=== PATIENT | female | born 1940 | race Caucasian/White ===

== ENCOUNTER 2018-12-31 05:00 | Inpatient (IN) ==
[2018-12-31] MEDS ORDERED: ONDANSETRON HCL/PF 2 MG/ML VIAL IV ONE (05:24)
[2018-12-31] MEDS ORDERED: fentaNYL CITRATE/PF 50 MCG/ML AMPUL IV ONE (05:24)
--- NOTE | 2018-12-31 05:34 | ERNOTE ---
Trauma/Assault HPI - Narrative Date of Service: 12/31/18 - General Stated Complaint: FALL.LT HIP PAIN Time Seen by Provider: 12/31/18 05:20 Source: patient Exam Limitations: no limitations - Immun/Allergies/Home Medications Immunizations: IMMUNIZATION HX Immunizations Up to Date Yes History of Influenza Vaccine No Hx Pneumococcal Vaccination Yes Allergies/Adverse Reactions: Allergies ciprofloxacin Allergy (Verified 12/31/18 05:12) codeine Allergy (Verified 12/31/18 05:12) tape Allergy (Uncoded 12/31/18 05:12) Home Medications: HOME MEDICATIONS Amlodipine Besylate/Benazepril [Lotrel 5-20 mg Capsule] 1 cap PO DAILY 11/17/14 [Last Taken Unknown] Cephalexin 250 mg PO BID 11/17/14 [Last Taken Unknown] Omeprazole [Prilosec] 20 mg PO DAILY 11/17/14 [Last Taken Unknown] - Pain Pain Score #1 Pain Score: 9 - History of Present Illness Date (Duration): 12/31/18 Narrative: Patient is brought in by EMS after she had a fall at home and is now reporting left hip pain she fell slowly she states she got up to go to the bathroom and felt pain in her left hip, this was severe, sharp, she fell slowly to the ground and then the pain became much worse. She is now reporting episodic muscle cramps which make the pain much worse. Currently during my exam she is having a muscle cramp and rates the pain a 9 out of 10. She is for the most part quite healthy otherwise, takes medication for high blood pressure, has a remote history of melanoma and had a bone density test last year where she had osteopenia bordering on osteoporosis. She was given fentanyl IM in the ambulance on the way here 25 MCG which helped the pain somewhat although it started to come back. She did not have any other injuries during her fall at home, no LOC, no head injuries. Location Occurred: Reports: home Pain Location: Reports: lower extremity Method of Injury: Reports: fall Severity: severe Loss of Consciousness: Reports: no loss of consciousness Review of Systems - Review of Systems Constitutional: Present: no symptoms reported EYE: Present: no symptoms reported ENT: Present: no symptoms reported Respiratory: Present: no symptoms reported Cardiology: Present: no symptoms reported Gastrointestinal/Abdominal: Present: no symptoms reported Musculoskeletal: Present: See HPI Medical History (Updated 12/31/18 @ 06:29 by Jaquelien Kirkpatrick MD) GERD (gastroesophageal reflux disease) HTN (hypertension) Melanoma UTI (urinary tract infection) Surgical History: Surgical History (Updated 12/31/18 @ 05:11 by Nettie Rogers) Hx of hysterectomy (Acute) Family History: Family History (Updated 12/31/18 @ 05:12 by Nettie Rogers) Father Heart problem Mother Breast cancer Social History: (Last Reviewed 12/31/18 @ 05:32 by Jaqueline Kirkpatrick MD) Tobacco: Smoking Status: Never smoker Alcohol: alcohol intake: never Substance Use: substance use type: does not use Home Safety: water heater temp set < 120 deg: Yes working smoke detector in home: Yes fire extinguisher in home: Yes carbon monox detector in home: Yes firearms in home: No firearms unloaded and locked: No Physical Exam - Physical Exam General Appearance: Present: wd/wn, alert, moderate distress Head Exam: Present: normal inspection, no evidence of injury Eye Exam: Normal inspection: bilateral, PERRL: bilateral, EOMI: bilateral Ears, Nose, Throat: Present: normal ENT inspection Neck: Present: normal inspection, nontender Respiratory: Present: no respiratory distress, normal breath sounds Cardiovascular/Chest: Present: regular rate, rhythm, no murmur Gastrointestinal/Abdominal: Present: normal bowel sounds, nontender, nondistended, soft Extremity Exam: Present: other - Right lower extremity is normal, left leg is externally rotated, just a bit shorter than the right. Patient has extreme pain in the left hip. She is unable to move it. This pain is worse with palpation in the hip. There is no pain with palpation at the crest of the iliac. The pain is actually somewhat better with posterior palpation of the hip. There is no pain with palpation distally in the thigh, no pain with palpation over the lower extremity. She has a sensation distal to the injury in the ankle, her DP pulses intact Skin Exam: Present: normal color, cool/dry Progress - Vital Signs Patient's Vital Signs:: I have reviewed the patient's vital signs. Vital Signs: Vital Signs 12/31/18 05:03 Temperature 37.3 C Pulse Rate 65 Respiratory Rate 19 Blood Pressure 149/78 O2 Sat by Pulse Oximetry 93 - X-Ray X-Ray #1 X-Ray: hip Interpretation: Interp. by me - Left femoral neck fracture - Progress/Reassessment Chief Complaint: Fall Progress:: Improved Progress Note-Subjective: 12/31/18 06:30 I spoke with Ortho on-call, Dr. Burgos, as well as Dr. Nash and discussed the findings on x-ray, left femoral neck fracture. Patient received 50 MCG of fentanyl IV here which helped with pain somewhat, she then required 0.5 mg of Dilaudid as well as 5 mg of Valium because she was having some muscle spasms associated with the fracture. Patient will be admitted here for the fracture and repair. I spoke with the patient and her and relayed this information, answered questions. Departure Clinical Impression: Fracture of femoral neck, left Qualifiers: Encounter type: initial encounter Fracture type: closed Qualified Code(s): S72.002A - Fracture of unspecified part of neck of left femur, initial encounter for closed fracture - Departure Disposition: Still a patient Condition: Fair Referrals: Kellen Ewing, [employer]IATE [Primary Care Provider] - Critical Care Time - Critical Care Critical Time Spent:: No - none Total time (mins) Spent:: 0
[2018-12-31] MEDS ORDERED: HYDROmorphone HCL 1 MG/ML DISP.SYRIN IV ONE (05:55)
[2018-12-31] MEDS ORDERED: DIAZEPAM 5 MG/ML SYRG IV ONE (06:25)
[2018-12-31 06:42] LABS: Hematocrit 40.4 % (37.0-47.0); Hemoglobin 13.5 gm/dL (12.5-16.0); Mean Cell Volume 94.6 fl (78-100); Mean Corpuscular Hemoglobin 31.6 pg (27-31); Mean Corpuscular Hgb Conc 33.4 g/dl (32-36); Mean Platelet Volume 10.1 fl (8-12.5); Neutrophil # 11.6 K/mm3 (1.3-6.0); Neutrophil % 86.1 % (42-75.0); Platelet Count 363 K/mm3 (150-450); Red Blood Count 4.27 M/mm3 (4.2-5.4); Red Cell Distribution Width 13.5 % (11.5-14.0); White Blood Count 13.4 K/mm3 (4.0-10.5)
[2018-12-31 06:55] LABS: Albumin * 3.6 gm/dl (3.4-5.0); BUN/Creatinine Ratio 10.8 (9.0-21.6); Bilirubin, Total 0.4 mg/dL (0.0-1.1); Ca. Corrected For Albumin 8.7 mg/dL (8.4-10.2); Calcium * 8.7 mg/dL (7.9-10.9); Carbon Dioxide 28.6 mmol/L (24-32.6); Potassium 3.6 mmol/L (3.4-4.6); Total Protein 7.9 gm/dL (6.2-8.2)
[2018-12-31] MEDS ORDERED: MORPHINE SULFATE 4 MG/ML SYRG IV ONE (07:26)
[2018-12-31] MEDS ORDERED: diphenhydrAMINE HCL 50 MG/ML VIAL IV ONE (07:46)
--- NOTE | 2018-12-31 08:22 | HP ---
Chief Complaint - Chief Complaint Date of Service: 12/31/18 Time of Service: 08:09 Chief Complaint: hip fracture History of Present Illness: History of hypertension, frequent UTI, and remote melanoma fell overnight and sustained a left femoral neck fracture. She is not sure what made her fall, but she knows she did not trip. She reports feeling like her normal self this week, doing yard work. She has a supply of Keflex at home when she takes and she feels increased urinary frequency and bladder spasms, and she last took this 2 to 3 days ago. She denies chest pain, shortness of breath, abdominal pain, diarrhea, skin changes. She was given Valium in the ER, and her oxygen saturations decreased. She was placed on a Ventimask at 4 L, which is now down to 2 L. She was given Dilaudid for pain control in the ER, and morphine on the floor. After being given the morphine, her right arm developed erythema and intense itchiness. Benadryl administered and the itchiness resolved. Medical History (Updated 12/31/18 @ 08:22 by Janae Moore DO) GERD (gastroesophageal reflux disease) HTN (hypertension) Melanoma UTI (urinary tract infection) Surgical History: Surgical History (Updated 12/31/18 @ 05:11 by Nettie Rogers) Hx of hysterectomy (Acute) Family History: Family History (Updated 12/31/18 @ 05:12 by Nettie Rogers) Father Heart problem Mother Breast cancer Social History: (Last Reviewed 12/31/18 @ 07:16 by Adelina Bob RN) Tobacco: Smoking Status: Never smoker Alcohol: alcohol intake: never Substance Use: substance use type: does not use Home Safety: water heater temp set < 120 deg: Yes working smoke detector in home: Yes fire extinguisher in home: Yes carbon monox detector in home: Yes firearms in home: No firearms unloaded and locked: No Review Of Systems (GEN) - Review of Systems Generalized/Overall Review: Absent: Fever Respiratory: Absent: Shortness of Breath Cardiac: Absent: Chest Pain, Edema Abdominal: Absent: Vomiting Genitourinary: Present: No Symptoms Reported Musculoskeletal: Present: Joint Pain Neurological: Present: No Symptoms Reported Skin: Present: Change in Color - Redness of right forearm at IV site Immunizations: IMMUNIZATION HX Immunizations Up to Date Yes History of Influenza Vaccine No Hx Pneumococcal Vaccination Yes Allergies/Adverse Reactions: Allergies Allergy/AdvReac Type Severity Reaction Status Date / Time ciprofloxacin Allergy Verified 12/31/18 07:17 codeine Allergy Verified 12/31/18 07:17 morphine Allergy Verified 12/31/18 08:10 tape Allergy Uncoded 12/31/18 07:17 Home Medications: HOME MEDICATIONS Amlodipine Besylate/Benazepril [Lotrel 5-20 mg Capsule] 1 cap PO DAILY 11/17/14 [Last Taken 12/31/18] Cephalexin 500 mg PO BID PRN 11/17/14 [Last Taken Unknown] Omeprazole [Prilosec] 20 mg PO DAILY 11/17/14 [Last Taken Unknown] Calcium Carbonate [Tums] 500 mg PO PRN PRN 12/31/18 [Last Taken Unknown] Calcium Carbonate/Vitamin D3 [Calcium 250-D Tablet] 1 ea PO DAILY 12/31/18 [Last Taken Unknown] Exam - Exam Vital Signs: Vital Signs - Last Taken Temp 36.3 C 12/31/18 07:15 Pulse 72 12/31/18 07:15 Resp 18 12/31/18 07:15 BP 145/70 12/31/18 07:15 Pulse Ox 96 12/31/18 07:41 Constitutional: Present: Alert, Oriented x3, Cooperative, Elderly Respiratory: Present: lungs clear, normal breath sounds, other - Wearing 2 L O2 via Ventimask Cardiovascular/Chest: Present: regular rate, rhythm Abdomen: Present: Normal bowel sounds, soft, nontender Extremity: Present: other - Left lower leg laterally rotated and foreshortened Skin Exam: Present: other - 8 x 4 area of erythema proximal to the IV site of the right forearm. 2 x 2 centimeter raised circular nodule with the area of erythema Eye contact: Present: good eye contact Diagnostic Studies: Abnormal Lab Results 12/31/18 12/31/18 Range/Units 06:40 06:40 WBC 13.4 H (4.0-10.5) K/mm3 MCH 31.6 H (27-31) pg Immature Gran # (Auto) 0.05 H (0.000-0.0310) K/mm3 Neutrophils % 86.1 H (42-75.0) % Lymphocytes % 8.0 L (20-51) % Neutrophils # 11.6 H (1.3-6.0) K/mm3 Lymphocytes # 1.07 L (1.5-3.5) k/mm3 Random Glucose 138 H (70-110) mg/dL Laboratory Results WBC 13.4 K/mm3 (4.0-10.5) H 12/31/18 06:40 RBC 4.27 M/mm3 (4.2-5.4) 12/31/18 06:40 Hgb 13.5 gm/dL (12.5-16.0) 12/31/18 06:40 Hct 40.4 % (37.0-47.0) 12/31/18 06:40 MCV 94.6 fl (78-100) 12/31/18 06:40 MCH 31.6 pg (27-31) H 12/31/18 06:40 MCHC 33.4 g/dl (32-36) 12/31/18 06:40 RDW 13.5 % (11.5-14.0) 12/31/18 06:40 Plt Count 363 K/mm3 (150-450) 12/31/18 06:40 MPV 10.1 fl (8-12.5) 12/31/18 06:40 Immature Gran % (Auto) 0.40 % (0.001-0.429) 12/31/18 06:40 Immature Gran # (Auto) 0.05 K/mm3 (0.000-0.0310) H 12/31/18 06:40 86.1 % (42-75.0) H 12/31/18 06:40 8.0 % (20-51) L 12/31/18 06:40 4.7 % (0.0-9) 12/31/18 06:40 0.4 % (0.0-3.0) 12/31/18 06:40 0.4 % (0.0-1.0) 12/31/18 06:40 Nucleated RBC % 0.0 k/mm3 (0-1) 12/31/18 06:40 11.6 K/mm3 (1.3-6.0) H 12/31/18 06:40 1.07 k/mm3 (1.5-3.5) L 12/31/18 06:40 0.6 k/mm3 (0.0-1.0) 12/31/18 06:40 0.1 k/mm3 (0.0-0.7) 12/31/18 06:40 Absolute Basophils 0.1 k/mm3 (0.0-0.1) 12/31/18 06:40 Sodium 138 mmol/L (132-142) 12/31/18 06:40 139 mmol/L (130-142) 12/31/18 06:40 Potassium 3.6 mmol/L (3.4-4.6) 12/31/18 06:40 Chloride 103 mmol/L (97-106) 12/31/18 06:40 Carbon Dioxide 28.6 mmol/L (24-32.6) 12/31/18 06:40 10.0 mmol/L (6.8-13.8) 12/31/18 06:40 BUN 7 mg/dL (3-23) 12/31/18 06:40 0.65 mg/dL (0.4-1.4) 12/31/18 06:40 Est GFR (Non-Af Amer) 93 mL/min (60-130) 12/31/18 06:40 10.8 (9.0-21.6) 12/31/18 06:40 138 mg/dL (70-110) H 12/31/18 06:40 Calcium 8.7 mg/dL (7.9-10.9) 12/31/18 06:40 Calcium Adj for Albumin 8.7 mg/dL (8.4-10.2) 12/31/18 06:40 0.4 mg/dL (0.0-1.1) 12/31/18 06:40 AST 46 U/L (0-48) 12/31/18 06:40 ALT 37 U/L (19-67) 12/31/18 06:40 69 U/L (50-170) 12/31/18 06:40 7.9 gm/dL (6.2-8.2) 12/31/18 06:40 3.6 gm/dl (3.4-5.0) 12/31/18 06:40 Assessment/Plan - Assessment/Plan (1) Fracture of femoral neck, left Assessment: Xray reads "Nondisplaced, mildly impacted fracture of the left femoral neck at the basicervical region." Patient is unsure why she fell this morning, which raises concern for potential pathologic fracture. Imaging of her femur from 2015 did not reveal an abnormality. She has a history of osteoporosis, for w hich she takes reclast injections. She is scheduled to have this replaced this morning with Ortho. We will continue pain control with IV Dilaudid. Using the NSQIP risk calculator, she has a below average risk of any complication. She denies symptoms of infection this morning. OK to proceed with surgery. She has an above average risk of DC to rehab facility and functional decline. Anticipate she likely will require placement for PT. Expect her stay to be at least 2 midnights. Problem: Acute Qualifiers: Encounter type: initial encounter Fracture type: closed Qualified Code(s): S72.002A - Fracture of unspecified part of neck of left femur, initial encounter for closed fracture (2) Hypertension Assessment: Blood pressure currently controlled. She did take her blood pressure medications this morning, so we will need to monitor this during surgery. Problem: Chronic (3) Allergic reaction caused by a drug Assessment: Patient developed pruritus and erythema at the site of injection, her right forearm. Itching improved after Benadryl. Will administer IV Dilaudid for pain control, 1 mg every hour prn. Problem: Acute (4) History of melanoma Assessment: Patient reports having a melanoma removed 7 years ago. Problem: Chronic
--- NOTE | 2018-12-31 08:44 | ANES ---
Anesthesia Pre Procedure Eval Vitals/Labs: Last Vital Signs Temp 36.3 C 12/31/18 07:15 Pulse 72 12/31/18 07:15 Resp 18 12/31/18 07:15 BP 145/70 12/31/18 07:15 Pulse Ox 96 12/31/18 07:41 HOME MEDICATIONS Amlodipine Besylate/Benazepril [Lotrel 5-20 mg Capsule] 1 cap PO DAILY 11/17/14 [Last Taken 12/31/18] Cephalexin 500 mg PO BID PRN 11/17/14 [Last Taken Unknown] Omeprazole [Prilosec] 20 mg PO DAILY 11/17/14 [Last Taken Unknown] Calcium Carbonate [Tums] 500 mg PO PRN PRN 12/31/18 [Last Taken Unknown] Calcium Carbonate/Vitamin D3 [Calcium 250-D Tablet] 1 ea PO DAILY 12/31/18 [Last Taken Unknown] Allergies/Adverse Reactions: Allergies Allergy/AdvReac Type Severity Reaction Status Date / Time ciprofloxacin Allergy Verified 12/31/18 07:17 codeine Allergy Verified 12/31/18 07:17 morphine Allergy Verified 12/31/18 08:10 tape Allergy Uncoded 12/31/18 07:17 - Planned Procedure Planned Procedure: LEFT FEM NECK FX Medication List Reviewed:: Yes Allergies Verified: Yes Medical History (Updated 12/31/18 @ 08:34 by Janae Moore DO) GERD (gastroesophageal reflux disease) HTN (hypertension) Melanoma UTI (urinary tract infection) Surgical History (Updated 12/31/18 @ 05:11 by Nettie Rogers) Hx of hysterectomy (Acute) Family History (Updated 12/31/18 @ 05:12 by Nettie Rogers) Father Heart problem Mother Breast cancer - Family Anesthesia History Family History:: no untoward family reactions to anesthesia, no familial bleeding tendencies, no family history of clotting disorders, no family history of premature - Airway/Neck/Teeth Within Normal Limits:: Yes Teeth Condition: intact Neck Exam: full range of motion Mallampatti Score: 2 Thyromental (T-M) distance: > 6 cm Mandibulo Hyoid distance: > 3 cm - Respiratory Respiratory Physical: lungs clear Smoking Status: Never smoker Sleep Apnea currently treated: No Sleep Apnea by current assessment: No - Cardiovascular Cardiac History: hypertension Tolerate Activity: Fair Heart Sounds: S1 & S2, Regular, Murmur - slight at apex - Anesthesia Assessment and Plan ASA Class: PS, II Anesthesia Type Plan: Spinal
[2018-12-31] MEDS ORDERED: HYDROmorphone HCL 1 MG/ML DISP.SYRIN IV PRN (09:00)
--- NOTE | 2018-12-31 09:22 | CONS ---
[facility] - General Date of Service: 12/31/18 Narrative: Yane is a 78 yo female who tripped and fell from standing height in her home last night resulting in a displaced left femoral neck fracture. She was brought to the [facility] emergency department where plain films revealed the injury. She denies any other injuries and the rest of her work-up was negative. She has a remote history of melanoma but is otherwise extremely healthy. She is a very active community ambulator. Upon evaluation she complains only of left hip pain and muscle spasms. She denies any chest pain, shortness of breath, headache, or dizziness. She denies any other musculoskeletal pain. Source: patient - History of Present Illness Allergies/Adverse Reactions: Allergies ciprofloxacin Allergy (Verified 12/31/18 07:17) codeine Allergy (Verified 12/31/18 07:17) morphine Allergy (Verified 12/31/18 08:10) tape Allergy (Uncoded 12/31/18 07:17) Home Medications: Home Medications Medication Instructions Recorded Last Taken Amlodipine Besylate/Benazepril 1 cap PO DAILY 11/17/14 12/31/18 [Lotrel 5-20 mg Capsule] Cephalexin 500 mg PO BID PRN 11/17/14 Unknown Omeprazole [Prilosec] 20 mg PO DAILY 11/17/14 Unknown Calcium Carbonate [Tums] 500 mg PO PRN PRN 12/31/18 Unknown Calcium Carbonate/Vitamin D3 1 ea PO DAILY 12/31/18 Unknown [Calcium 250-D Tablet] Procedures Application of splint (02/05/01) Colonoscopy (07/14/05) Discission of secondary membrane [after cataract] (08/14/08) Injection of anesthetic into spinal canal for analgesia (01/01/11) Injection of other agent into spinal canal (01/01/11) Injection of steroid (01/01/11) Insertion of intraocular lens prosthesis at time of cataract extraction, one- stage (05/25/06) Other local excision or destruction of lesion or tissue of skin and subcutaneous tissue (07/14/05) Phacoemulsification and aspiration of cataract (05/25/06) Radical excision of skin lesion (01/08/04) Medications - Medications Current Medications: Current Medications Hydromorphone HCl (Dilaudid) 1 mg IV Q1H PRN PRN Reason: Severe Pain (pain scale 7-10) Stop: 01/30/19 09:01 Last Admin: 12/31/18 09:00 Dose: 1 mg Documented by: Review of Systems - Review of Systems Narrative: As per HPI, otherwise negative. Physical Examination - Exam Narrative: Gen: A&Ox4, NAD CV: RRR Resp: breathing non-labored MSK: LLE--> severe pain with any attempted motion of the hip, leg slightly shortened and externally rotated, SILT throughout all nerve distributions, distal cap refill brisk Radiology: Plain films from the ED demonstrate a displaced left femoral neck fracture with diffuse osteopenia/osteoporotic changes, no obvious pathologic lesions of the proximal femur, minimal pre-existing degenerative changes. Vital Signs: Vital Signs - Last Taken Temp 36.3 C 12/31/18 07:15 Pulse 72 12/31/18 07:15 Resp 18 12/31/18 07:15 BP 145/70 12/31/18 07:15 Pulse Ox 96 12/31/18 07:41 O2 Oxygen Delivery Method Oxy-mask - Results and Findings: Narrative: 78-year-old female with displaced left femoral neck fracture. -I counseled the patient and her on treatment options today including nonoperative management with protected weightbearing and pain control versus surgical fixation versus arthroplasty. Given the fracture pattern, the patient's activity level, and the patient's good health, I recommended total hip arthroplasty. I counseled her on the surgery itself as well as the risks and benefits including, but not limited to, infection, bleeding, neurovascular injury, intraoperative fracture, implant failure/loosening, dislocation, persistent pain, limp, leg length discrepancy, DVT/PE, risks with anesthesia, and . After discussion, she wishes to proceed with a left total hip arthroplasty. -To OR this morning for left total hip arthroplasty. -Informed consent obtained. -Patient n.p.o. -Continue medical comanagement. -Readmit to floor postoperatively for pain control, physical therapy, monitoring of wound, medical comanagement, and discharge planning. Lab/Microbiology results last 24 hrs: Abnormal/Pending Laboratory Last 24 HRS 12/31/18 12/31/18 06:40 06:40 WBC 13.4 H MCH 31.6 H Immature Gran # (Auto) 0.05 H Neutrophils % 86.1 H Lymphocytes % 8.0 L Neutrophils # 11.6 H Lymphocytes # 1.07 L Random Glucose 138 H - Assessments/Findings (1) Fracture of femoral neck, left Problem: Acute Qualifiers: Encounter type: initial encounter Fracture type: closed Qualified Code(s): S72.002A - Fracture of unspecified part of neck of left femur, initial encounter for closed fracture
[2018-12-31] MEDS ORDERED: HYDROcodone/ACETAMINOPHEN 1 EACH TABLET PO PRN ×2 (12:21)
[2018-12-31] MEDS ORDERED: MAG HYDROX/ALUMINUM HYD/SIMETH 30 ML UDC PO PRN (12:21)
[2018-12-31] MEDS ORDERED: ACETAMINOPHEN 500 MG TABLET PO PRN (12:21)
[2018-12-31] MEDS ORDERED: MAGNESIUM HYDROXIDE 30 ML UDC PO PRN (12:21)
--- NOTE | 2018-12-31 12:23 | ANES ---
Post Anesthesia Discharge - Transfer of Care Transfer of Care handoff given to nurse: Yes - Discharge from PACU Discharge from PACU when meets criteria: Yes - Awake and comfortable.
--- NOTE | 2018-12-31 12:41 | ANES ---
Post Anesthesia Assessment - Vital Signs Vitals: Last Vital Signs Temp 36.7 C 12/31/18 12:25 Pulse 67 12/31/18 12:25 Resp 16 12/31/18 12:25 BP 110/47 12/31/18 12:25 Pulse Ox 98 12/31/18 12:25 Airway Patency: Normal - Mental Status Level Of Consciousness: Awake, Alert, Appropriate - Pain Level Pain Score: 0 - N/V Assessment Nausea/Vomiting Presence: None Dehydration:: No
--- NOTE | 2018-12-31 12:44 | OR ---
Operative Report - Dictated Report Narrative: Date: 12/31/2018 Preoperative diagnosis: Left displaced femoral neck fracture Postoperative diagnosis: Left displaced femoral neck fracture Procedure: Left total hip arthroplasty Surgeon: Iron Burgos M.D. Technical Sales Director: None Anesthesia: Spinal and local periarticular joint injection. Complications: None Specimens: Femoral head/neck Estimated blood loss: 200 ml Retained implants: Depuy Corail size 12 femoral stem standard offset. Size 52 millimeter ouside diameter 3-hole Tovey Gription acetabular cup. 52 millimeter outside by 36 millimeter inside diameter highly cross-linked acetabular liner. 36 millimeter diameter + 5 millimeter ceramic femoral head. Cancellous 6.5mm screw 35 millimeter length Indications: Yane is a 78-year-old female community ambulator who tripped and fell in her home early this morning resulting in a displaced left femoral neck fracture. She was initially seen in the [facility] emergency department where plain films revealed the above injury. Further work- up revealed no other injuries or acute medical issues. She was admitted to the hospital under the family medicine service and orthopedics was consulted for further management. I counseled her on treatment options and based on the fracture, the patient's activity level, and her overall good health, I recommended a left total hip arthroplasty. The patient wished to proceed with surgical treatment. The risks, benefits, and alternatives were discussed. The risks of , blood clots, bleeding, infection, nerve/tendon blood vessel/ injury, malposition of components, dislocation and/or instability of joint, intraoperative fracture, postoperative limited range of motion, persistent pain, failure of components, and need for additional procedures. Patient wished to proceed. Consent was obtained after answering all questions. Procedure: After marking the correct extremity on the floor, the patient was taken to the operating room. A timeout was performed. IV antibiotics consisting of 1 g of Ancef were administered prior to the procedure. A spinal anesthetic was induced by anesthesia. A Cline catheter was inserted. The patient was then transitioned to a lateral position on a well-padded pegboard. And an axillary roll was placed. The head was in neutral position. The non- operative down leg was well-padded with SCD and FRANCESCA hose in place. The arms were supported and padded to protect from any undue pressure on the bony prominences and nerves. Well-padded anterior and posterior pelvic and chest posts were secured in order to maintain a stable position of the pelvis. This was placed so that the pelvis was perpendicular to the floor. The body was in line with the pelvis. Once it was felt that we had protected all the bony prominences and the patient was well secured with a safety belt as well, the leg was pre-scrubbed with alcohol, prepped and draped in a standard sterile fashion. A standard anterior lateral hip incision was marked out over the greater trochanter. Ioban drapes were then placed. The skin incision was then made. Sharp dissection with a scalpel utilizing cautery for hemostasis was carried out down to the gluteus and iliotibial band fascia. This was split in line with the skin incision. The greater trochanter bursa was excised. The anterior and posterior margins of the abductor tendon were identified. The anterior 1/3 of the tendon was tagged and reflected off the greater trochanter leaving a sleeve of tendon for repair at the completion of the case. This exposed the underlying hip joint capsule. A limb length stitch was placed in the skin and referenced off a jordin on the greater trochanter for evaluation of intraoperative limb lengths. An inverted T-type capsulotomy was made extending this up to the brim of the acetabulum. Fracture hematoma was encountered. Using Homans to assist with elevation of the soft tissues off the anterior, superior, and inferior aspects of the femoral neck, the hip was then placed in a figure 4 position and the proximal femur was visualized. This demonstrated a displaced femoral neck fracture with no extension distally. With the leg in an externally rotated and adducted position, the cutting flag was utilized in order to jordin for a low femoral neck cut above the level of the lesser trochanter. This was done while protecting the surrounding soft tissues with Homans. The femoral head was then removed with a corkscrew and sized for guidance on preparation of the acetabulum. It was noted that there was loss of articular cartilage on both the femoral head and weightbearing portions of the acetabulum. We then returned the leg to the table and turned our attention to the acetabulum. While protecting the surrounding soft tissues, the labrum and remaining tissue in the fovea were excised using a scalpel and cautery. A series of reamers up to size 51 millimeter were utilized to prepare the acetabulum. The final reamer had good purchase and exposed the bleeding subchondral bone. The acetabulum was then thoroughly irrigated ensuring that all bony and cartilaginous materials were removed and the final acetabular shell was impacted into place. This was placed in approximately 40 degrees of abduction and 20 degrees of anteversion utilizing the outrigger and body axis for alignment. This had a good press fit. One 6.5 x 35 mm cancellous screw was placed in the posterior superior quadrant of the acetabulum. The shell was then thoroughly irrigated and the final polyethylene was impacted into place ensuring that it seated completely. This was then protected with a sponge while we returned our attention to the femur. With the leg in a figure 4 position utilizing Homans for soft tissue protection, a box cutting osteotome, followed by Charnley awl, followed by serial impaction broaches were utilized in order to prepare the femur. It was found that a size 12 broach gave good axial and rotational stability. The calcar reamer was utilized in order to clean up the cut edges. The proximal femur was visualized to ensure that there were no signs of fracture. A series of heads and necks were trialed. It was found that a standard neck and a + 5 mm femoral head gave good overall stability. There was minimal longitudinal instability. With the leg in the position of sleep the femoral head was well covered. Hip range of motion was able to reach full extension and external rotation to greater than 75 degrees prior to impingement along the posterior acetabulum. The hip was able to be flexed to greater than 90 degrees with internal rotation greater than 60 degrees prior to anterior impingement. The limb lengths were near equal based on comparison to the contralateral side in the prior placed limb length stitch. At this point was felt this was the appropriately sized femoral components as we ll as neck and femoral head. The trial implants were removed. The femur was thoroughly irrigated. The final implants were impacted in the place and the hip was reduced. After ensuring that there was no damage to the proximal femur, the standard periarticular joint injection of ropivacaine, Toradol, and epinephrine were injected into the joint capsule and surrounding soft tissues. 1 g of vanco mycin powder was placed in the joint. The capsule was repaired with interrupted #1 Vicryl. The abductor tendon was repaired to the greater trochanter utilizing #5 Ethibond. This was oversewn with #1 Vicryl. The fascia was closed with running #1 Stratafix PDS. The wounds were thoroughly irrigated as we closed in layers. The deep fat layers were closed with 0 Stratafix PDS. The subcutaneous tissue was closed with interrupted 3-0 Vicryl and the skin with a running subcuticular 3-0 monocryl and Prineo dressing. All sponge, needle, blade, and instrument counts were correct prior to closing the wounds. Sterile dressings consisting of 4 x 4's and tape were applied. The patient was awoken and transferred to her hospital bed and then to the postanesthesia care unit in stable condition. Postoperative condition: The plan is to admit to the medical/surgical inpatient floor postoperatively. There will be a projected 2 to 4 day hospital stay. Postoperatively 24 hours of IV antibiotics, pain control, physical therapy, occupational therapy, and medical comanagement will be utilized. Patient will be weightbearing as tolerated with anterior hip precautions. Postoperative films will be obtained in the recovery room.
[2018-12-31] MEDS: NORMAL SALINE 1,000 ML IV PRN ×2 (13:19→23:26)
[2018-12-31] MEDS: PANTOPRAZOLE SODIUM 20 MG TABLET.DR PO SCH (13:20)
[2018-12-31] MEDS: CALCIUM CARBONATE 500 MG TAB.CHEW PO PRN (13:20)
[2018-12-31] MEDS: ONDANSETRON HCL/PF 2 MG/ML VIAL IV PRN (13:55)
[2018-12-31] MEDS: ceFAZolin SODIUM 1 GM in DEXTROSE 5 % IN WATER 100 ML IV SCH ×2 (17:03)
[2018-12-31] MEDS: SENNOSIDES/DOCUSATE SODIUM 1 TAB TABLET PO SCH (20:25)
[2018-12-31 20:34] LABS: Urine Bilirubin Negative (NEGATIVE); Urine Ketone Negative (NEGATIVE); Urine Nitrite Negative (NEGATIVE); Urine Protein Negative (NEGATIVE); Urine Urobilinogen Normal (NORMAL)
[2018-12-31 20:40] LABS: Urine Appearance Slightly Cloudy (CLEAR); Urine Bacteria 3+; Urine Blood 10 /ul (NEGATIVE); Urine Color Yellow; Urine RBC 0-5 /hpf (0-5)
[2018-12-31] MEDS ORDERED: CEPHALEXIN MONOHYDRATE 250 MG CAPSULE ONE (21:53)
[2018-12-31] MEDS: CEPHALEXIN MONOHYDRATE 500 MG CAPSULE PO SCH (21:55)
[2019-01-01] MEDS: HYDROmorphone HCL 1 MG/ML DISP.SYRIN IV PRN ×2 (00:17→04:26)
[2019-01-01] MEDS: ceFAZolin SODIUM 1 GM in DEXTROSE 5 % IN WATER 100 ML IV SCH ×4 (01:58→09:24)
[2019-01-01] MEDS: CALCIUM CARBONATE 500 MG TAB.CHEW PO PRN ×3 (04:30→14:05)
[2019-01-01 05:56] LABS: Hemoglobin 10.4 gm/dL (12.5-16.0); Mean Cell Volume 93.7 fl (78-100); Mean Corpuscular Hemoglobin 31.4 pg (27-31); Mean Corpuscular Hgb Conc 33.5 g/dl (32-36); Mean Platelet Volume 10.1 fl (8-12.5); Platelet Count 252 K/mm3 (150-450); Red Blood Count 3.31 M/mm3 (4.2-5.4); Red Cell Distribution Width 13.4 % (11.5-14.0)
[2019-01-01] MEDS ORDERED: VANCOMYCIN HCL 1 GM VIAL TP PRN (06:00)
[2019-01-01] MEDS ORDERED: ROPIVACAINE HCL/PF 100 MG, EPINEPHrine 0.2 MG, KETOROLAC TROMETHAMINE 30 MG in NORMAL S... IJ PRN (06:00)
[2019-01-01] MEDS ORDERED: ceFAZolin SODIUM 1 GM VIAL IV PRN (06:00)
[2019-01-01] MEDS ORDERED: TRANEXAMIC ACID 1,000 MG in NORMAL SALINE 100 ML IV PRN (06:00)
[2019-01-01] MEDS ORDERED: RINGER'S SOLUTION,LACTATED 1,000 ML IV PRN (06:00)
[2019-01-01 06:04] LABS: Anion Gap 9.1 mmol/L (6.8-13.8); BUN/Creatinine Ratio 14.3 (9.0-21.6); Calcium * 7.5 mg/dL (7.9-10.9); Carbon Dioxide 26.6 mmol/L (24-32.6); Estimated Creat Clear 64.4; Potassium 3.7 mmol/L (3.4-4.6)
[2019-01-01] MEDS: ONDANSETRON HCL/PF 2 MG/ML VIAL IV PRN (07:03)
[2019-01-01] MEDS: ENALAPRIL MALEATE 20 MG TABLET PO SCH (09:23)
[2019-01-01] MEDS: PANTOPRAZOLE SODIUM 20 MG TABLET.DR PO SCH (09:23)
[2019-01-01] MEDS: amLODIPine BESYLATE 5 MG TABLET PO SCH (09:23)
[2019-01-01] MEDS: CEPHALEXIN MONOHYDRATE 500 MG CAPSULE PO SCH ×2 (09:24→20:23)
--- NOTE | 2019-01-01 11:39 | PN ---
Subjective - Date and Time Seen Date: 01/01/19 Time: 11:39 Subjective Narrative: Patient did well overnight, no acute events. Vital signs been stable and pain well controlled. Patient's main concern is nausea which is been ongoing for her. Unable to tolerate oral meds due to this, vomiting after anything ingested. Objective - Review of Systems Generalized/Overall Review: Denies: Weakness, Chills, Fever EENTM: Reports: No Symptoms Reported Respiratory: Denies: Cough, Shortness of Breath Cardiac: Denies: Chest Pain, Palpitations Abdominal: Reports: Nausea, Vomiting. Denies: Hematemesis, Abdominal Pain Genitourinary Symptoms: Reports: No Symptoms Reported Musculoskeletal Complaints: Reports: Joint Pain - Left lower extremity, Muscle Pain Neurological: Reports: Other - Neuropathic pain down left lower extremity from knee to dorsum of foot Skin: Reports: No Symptoms Reported - Vitals Vitals: Last Vital Signs Temp 36.6 C 01/01/19 06:50 Pulse 80 01/01/19 09:23 Resp 16 01/01/19 06:50 BP 134/85 01/01/19 09:23 Pulse Ox 94 01/01/19 08:00 - Abnormal Lab Findings Abnormal Lab Findings: Abnormal Lab Results 12/31/18 01/01/19 01/01/19 Range/Units 20:29 05:50 05:50 RBC 3.31 L (4.2-5.4) M/mm3 Hgb 10.4 L (12.5-16.0) gm/dL Hct 31.0 L (37.0-47.0) % MCH 31.4 H (27-31) pg Sodium 130 L (132-142) mmol/L Random Glucose 115 H (70-110) mg/dL Calcium 7.5 L (7.9-10.9) mg/dL Urine Blood 10 H (NEGATIVE) /ul Ur Leukocyte Esterase 75 H (NEGATIVE) /ul Urine WBC 5-10 H (0-5) /hpf Urine Bacteria 3+ H (NONE) - Exam Constitutional: Present: Alert, Oriented x3, Cooperative, Well developed, Well nourished, Elderly ENT Exam: Present: hearing grossly normal. Absent: nasal congestion, nasal drainage Neck: Present: non-tender, supple Respiratory: Present: lungs clear, normal breath sounds Cardiovascular/Chest: Present: normal peripheral pulses, regular rate, rhythm Abdomen: Present: soft, nontender, nondistended Extremity: Present: leg pain Skin Exam: Present: normal color, warm/dry Neurologic: Absent: motor weakness, sensory deficit Appearance: Present: appropriate appearance, appropriate insight Eye contact: Present: cooperative, good eye contact, normal speech Thoughts: Present: normal thought pattern, normal mood /affect Cauti Physician Documentation - Urinary Catheter Management Urethral (Cline) Date of Insertion: 12/31/18 Time of Insertion: 06:23 Date of Removal: 01/01/19 Time of Removal: 07:59 Assessment/Plan Plan Narrative: Patient continues to do well following surgical repair of left femur with Dr. Burgos. Sitting comfortably in a chair today. Pain well controlled when she is able to keep her medications down. Main concern again is nausea, will go ahead and schedule Zofran for the next day or 2 to everything except when she stops been so nauseated. Vital signs are stable, blood pressure well controlled Continue chronic medications, all meds been reconciled. No changes to diet. Lovenox for DVT prophylaxis. Nurse will call with questions or concerns. - Problems/Diagnosis (1) Peripheral neuropathy Problem: Acute (2) Fracture of femoral neck, left Problem: Acute Qualifiers: Encounter type: initial encounter Fracture type: closed Qualified Code(s): S72.002A - Fracture of unspecified part of neck of left femur, initial encounter for closed fracture (3) Hypertension Problem: Chronic (4) Allergic reaction caused by a drug Problem: Acute
[2019-01-01] MEDS: ONDANSETRON HCL/PF 2 MG/ML VIAL IV SCH ×3 (12:09→23:56)
[2019-01-01] MEDS: ENOXAPARIN SODIUM 40 MG/0.4 ML SYRG SC SCH (12:09)
--- NOTE | 2019-01-01 12:52 | PN ---
Subjective - Date and Time Seen Date: 01/01/19 Time: 12:50 Subjective Narrative: No events overnight. Pain controlled. Complaining of nausea/upset stomach this am. Objective - Vitals Vitals: Last Vital Signs Temp 36.8 C 01/01/19 11:40 Pulse 80 01/01/19 11:40 Resp 12 01/01/19 11:40 BP 125/64 01/01/19 11:40 Pulse Ox 95 01/01/19 11:40 - Abnormal Lab Findings Abnormal Lab Findings: Abnormal Lab Results 12/31/18 01/01/19 01/01/19 Range/Units 20:29 05:50 05:50 RBC 3.31 L (4.2-5.4) M/mm3 Hgb 10.4 L (12.5-16.0) gm/dL Hct 31.0 L (37.0-47.0) % MCH 31.4 H (27-31) pg Sodium 130 L (132-142) mmol/L Random Glucose 115 H (70-110) mg/dL Calcium 7.5 L (7.9-10.9) mg/dL Urine Blood 10 H (NEGATIVE) /ul Ur Leukocyte Esterase 75 H (NEGATIVE) /ul Urine WBC 5-10 H (0-5) /hpf Urine Bacteria 3+ H (NONE) - Exam Exam Narrative: Gen: A&Ox4, NAD CV: RRR Resp: breathing non-labored MSK: LLE--> dressings c/d/i, appropriate swelling and tenderness, no erythema, SILT, distal cap refill brisk Cauti Physician Documentation - Urinary Catheter Management Urethral (Cline) Date of Insertion: 12/31/18 Time of Insertion: 06:23 Date of Removal: 01/01/19 Time of Removal: 07:59 Assessment/Plan Plan Narrative: 78 yo F w/ displaced left femoral neck fx s/p L HOSSEIN, POD #1. - WBAT, anterior precautions - reg diet - oral pain meds - PT/OT - DVT ppx: lovenox, teds, SCDs - continue medical co-management - acute blood loss anemia - Hgb 10.4, continue to monitor - dispo: d/c planning ongoing - Problems/Diagnosis (1) Fracture of femoral neck, left Problem: Acute Qualifiers: Encounter type: initial encounter Fracture type: closed Qualified Code(s): S72.002A - Fracture of unspecified part of neck of left femur, initial encounter for closed fracture
[2019-01-01] MEDS: SENNOSIDES/DOCUSATE SODIUM 1 TAB TABLET PO SCH (20:22)
[2019-01-02] MEDS: ONDANSETRON HCL/PF 2 MG/ML VIAL IV SCH ×2 (05:33→11:51)
[2019-01-02 05:54] LABS: Hematocrit 32.4 % (37.0-47.0); Mean Cell Volume 91.8 fl (78-100); Mean Corpuscular Hemoglobin 31.2 pg (27-31); Mean Platelet Volume 10.5 fl (8-12.5); Platelet Count 252 K/mm3 (150-450); Red Blood Count 3.53 M/mm3 (4.2-5.4); Red Cell Distribution Width 13.2 % (11.5-14.0); White Blood Count 10.2 K/mm3 (4.0-10.5)
[2019-01-02 06:07] LABS: Anion Gap 10.4 mmol/L (6.8-13.8); BUN/Creatinine Ratio 10.3 (9.0-21.6); Calcium * 8.4 mg/dL (7.9-10.9); Carbon Dioxide 29.3 mmol/L (24-32.6); Estimated Creat Clear 53.1; Potassium 3.7 mmol/L (3.4-4.6)
[2019-01-02] MEDS: ENALAPRIL MALEATE 20 MG TABLET PO SCH (09:16)
[2019-01-02] MEDS: PANTOPRAZOLE SODIUM 20 MG TABLET.DR PO SCH (09:16)
[2019-01-02] MEDS: CEPHALEXIN MONOHYDRATE 500 MG CAPSULE PO SCH (09:16)
[2019-01-02] MEDS: amLODIPine BESYLATE 5 MG TABLET PO SCH (09:16)
[2019-01-02] MEDS: ENOXAPARIN SODIUM 40 MG/0.4 ML SYRG SC SCH (11:44)
[2019-01-02] MEDS: CALCIUM CARBONATE 500 MG TAB.CHEW PO PRN (11:45)
--- NOTE | 2019-01-02 12:41 | PN ---
Subjective - Date and Time Seen Date: 01/02/19 Time: 11:40 Subjective Narrative: Patient reports no acute events. So she is been opening blade well with therapy. She wishes to go home at this time. She notes her pain is a 2 out of 10 without any significant pain medication, use of Tylenol PRN. She does not that the Tylenol makes her nauseous so she feels as though she can deal with the pain. Patient notes her pain is mildly worse with weightbearing but better with rest. Overall she feels that she is doing well. Objective - Vitals Vitals: Last Vital Signs Temp 36.5 C 01/02/19 10:00 Pulse 96 01/02/19 10:00 Resp 20 01/02/19 10:00 BP 132/88 01/02/19 10:00 Pulse Ox 100 01/02/19 10:00 - Abnormal Lab Findings Abnormal Lab Findings: Abnormal Lab Results 01/02/19 01/02/19 Range/Units 05:45 05:45 RBC 3.53 L (4.2-5.4) M/mm3 Hgb 11.0 L (12.5-16.0) gm/dL Hct 32.4 L (37.0-47.0) % MCH 31.2 H (27-31) pg Random Glucose 137 H (70-110) mg/dL - Exam Constitutional: Present: Alert, Cooperative, No distress Respiratory: Present: no respiratory distress Extremity: Present: other - LLE--> sensation intact light touch, distal capillary refill brisk, bandages removed, no significant erythema or drainage at dressing site, pernio in place, diffuse mild tenderness about left hip, 5/5 plantar flexion/dorsiflexion of the ankle Cauti Physician Documentation - Urinary Catheter Management Urethral (Cline) Date of Insertion: 12/31/18 Time of Insertion: 06:23 Date of Removal: 01/01/19 Time of Removal: 07:59 Assessment/Plan Plan Narrative: 78 yo F w/ displaced left femoral neck fx s/p L HOSSEIN, POD #2. - WBAT, anterior precautions - reg diet - oral pain meds, use of Tylenol as needed - PT/OT continue outpatient PT at [facility] per patient's request - DVT ppx: lovenox for 10 days postoperatively followed by 325 mg aspirin daily for 4 to 6 weeks, teds - acute blood loss anemia, stable and asymptomatic - dispo: Continue outpatient PT, will be discharged home, follow-up in orthopedi c outpatient clinic at 2 weeks postoperative, call orthopedic outpatient clinic with any acute questions or concerns - Problems/Diagnosis (1) Fracture of femoral neck, left Problem: Acute Qualifiers: Encounter type: initial encounter Fracture type: closed Qualified Code(s ): S72.002A - Fracture of unspecified part of neck of left femur, initial encounter for closed fracture (2) Status post total left knee replacement Problem: Acute (3) Acute blood loss anemia Problem: Acute
--- NOTE | 2019-01-02 16:40 | DS ---
(1) Fracture of femoral neck, left Problem: Acute Qualifiers: Encounter type: initial encounter Fracture type: closed Qualified Code(s): S72.002A - Fracture of unspecified part of neck of left femur, initial encounter for closed fracture (2) Hypertension Problem: Chronic (3) Allergic reaction caused by a drug Problem: Acute (4) Peripheral neuropathy Problem: Acute Date of Discharge:: 01/02/19 Description of Stay: 78-year-old female had ground-level fall resulting in left femoral neck fracture. Orthopedics consulted and Dr. Cruz took her back for left total hip arthroplasty. Operation performed without complication, patient tolerated well. Patient was able to meet all requirements from a physical therapy standpoint and was cleared for discharge today. Pain is well controlled, she will go home on Lovenox for another 10 days and then be switched over to full-strength aspirin. Pain medications also be sent with her. No other changes to be made to her chronic medications. She will continue regular diet. She will follow with her PCP in 1 to 2 weeks as directed. Follow-up with Ortho as directed. PT ordered to be done in the outpatient setting, orders placed. Procedures Performed: see notes below - Left total hip arthroplasty Results and Findings: Pending Mircobiology Results 12/31/18 20:41 Urine,Clean Catch Urine Culture - Preliminary No Growth Lab Pending Results 12/31/18 06:40: WBC 13.4 H, RBC 4.27, Hgb 13.5, Hct 40.4, MCV 94.6, MCH 31.6 H, MCHC 33.4, RDW 13.5, Plt Count 363, MPV 10.1, Immature Gran % (Auto) 0.40, Immature Gran # (Auto) 0.05 H, Neutrophils % 86.1 H, Lymphocytes % 8.0 L, Monocytes % 4.7, Eosinophils % 0.4, Basophils % 0.4, Nucleated RBC % 0.0, Neutrophils # 11.6 H, Lymphocytes # 1.07 L, Monocytes # 0.6, Eosinophils # 0.1, Absolute Basophils 0.1 12/31/18 06:40: Sodium 138, Plasma Sodium 139, Potassium 3.6, Chloride 103, Carbon Dioxide 28.6, Anion Gap 10.0, BUN 7, Creatinine 0.65, Est GFR (Non-Af Amer) 93, BUN/Creatinine Ratio 10.8, Random Glucose 138 H, Calcium 8.7, Calcium Adj for Albumin 8.7, Total Bilirubin 0.4, AST 46, ALT 37, Alkaline Phosphatase 69, Total Protein 7.9, Albumin 3.6 12/31/18 11:38: Pathology Specimen Spec to path 12/31/18 20:29: Urine Color Yellow, Urine Appearance Slightly cloudy, Urine pH 6.0, Ur Specific [place] 1.020, Urine Protein Negative, Urine Glucose (UA) Negative, Urine Ketones Negative, Urine Blood 10 H, Urine Nitrate Negative, Urine Bilirubin Negative, Urine Urobilinogen Normal, Ur Leukocyte Esterase 75 H, Urine RBC 0-5, Urine WBC 5-10 H, Ur Epithelial Cells None seen, Urine Bacteria 3+ H, Urine Culture Comments Culture to follow 01/01/19 05:50: WBC 8.0 D, RBC 3.31 L, Hgb 10.4 L, Hct 31.0 L, MCV 93.7, MCH 31.4 H, MCHC 33.5, RDW 13.4, Plt Count 252, MPV 10.1 01/01/19 05:50: Sodium 130 L, Plasma Sodium 130, Potassium 3.7, Chloride 98, Carbon Dioxide 26.6, Anion Gap 9.1, BUN 8, Creatinine 0.56, Est GFR (Non-Af Amer) 111, BUN/Creatinine Ratio 14.3, Random Glucose 115 H, Calcium 7.5 L 01/02/19 05:45: WBC 10.2 D, RBC 3.53 L, Hgb 11.0 L, Hct 32.4 L, MCV 91.8, MCH 31.2 H, MCHC 34.0, RDW 13.2, Plt Count 252, MPV 10.5 01/02/19 05:45: Sodium 134, Plasma Sodium 135, Potassium 3.7, Chloride 98, Carbon Dioxide 29.3, Anion Gap 10.4, BUN 7, Creatinine 0.68, Est GFR (Non-Af Amer) 89, BUN/Creatinine Ratio 10.3, Random Glucose 137 H, Calcium 8.4 Discharge Location: Home Disposition: Home self-care Condition: Fair Discharge Activity: Weight bearing - as tolerated, anterior precautions Discharge Diet: General/regular food Referrals: Kellen Ewing, [employer] [Primary Care Provider] - Two Weeks Additional Patient Instructions (free text): -Please make TCM appointment unless long-term discharge, or if following up with outside provider. Thank you! Pretty @ [facility] [phone] or Janae at [phone]. Ortho Instructions: - Weightbearing as tolerated: anterior precautions - regular diet - PT/OT continue outpatient PT at [facility] per patient's request - DVT ppx: lovenox for 10 days postoperatively followed by 325 mg aspirin daily for 4 to 6 weeks, - magdalena bellamy - follow-up in orthopedic outpatient clinic with Dr. Burgos 01/13 at 8:30 a.m. -call orthopedic outpatient clinic with any acute questions or concerns Prescriptions (Any new or edited meds): Aspirin [Aspirin EC] 325 mg PO DAILY #42 tablet. Enoxaparin Sodium [Lovenox] 40 mg SC Q24H #10 disp.syrin HYDROcodone/ACETAMINOPHEN [[place] 5-325] 2 ea PO Q4H PRN #60 tab PRN Reason: Moderate Pain (Pain Scale 4-6) Complete Home Medications List: Complete Home Medication List: Amlodipine Besylate/Benazepril [Lotrel 5-20 mg Capsule] 1 cap PO DAILY 11/17/14 Cephalexin 500 mg PO BID PRN 11/17/14 Omeprazole [Prilosec] 20 mg PO DAILY 11/17/14 Calcium Carbonate [Tums] 500 mg PO PRN PRN 12/31/18 Calcium Carbonate/Vitamin D3 [Calcium 250-D Tablet] 1 ea PO DAILY 12/31/18 Aspirin [Aspirin EC] 325 mg PO DAILY #42 tablet. 01/02/19 Enoxaparin Sodium [Lovenox] 40 mg SC Q24H #10 disp.syrin 01/02/19 HYDROcodone/ACETAMINOPHEN [[place] 5-325] 2 ea PO Q4H PRN #60 tab 01/02/19
[2019-01-02 17:34] VITALS: BP 109/64
== END 2019-01-02 17:38 | disposition home or self-care (01) | DRG 470 ==
LOC: EDBD → ER 05:00 → MS 06:38
PROVIDERS: ADMIT Family Medicine; ATTEND Family Medicine
DX: R11.2 Nausea with vomiting, unspecified; L29.8 Other pruritus; Y92.230 Patient room in hospital as the place of occurrence of the external cause; S72.002A Fracture of unspecified part of neck of left femur, initial encounter for closed fracture; Z85.820 Personal history of malignant melanoma of skin; G62.9 Polyneuropathy, unspecified; I10 Essential (primary) hypertension; D62 Acute posthemorrhagic anemia; T40.2X5A Adverse effect of other opioids, initial encounter
CPT/HCPCS: 36415; 71010; 71045; 73502; 80048; 80053; 81001; 85025; 85027; 87086; 88305; 88311; 93005; 96374; 96375; 97110; 97116; 97161; 97165; 99285; J2405